=== PATIENT | male | born 1985 | race Two or more races ===

== ENCOUNTER 2024-12-08 12:47 | Inpatient (IN) | payer MEDICAID, SELFPAY ==
[2024-12-08] VITALS (10 sets, daily range): BP systolic 83–127; BP diastolic 51–70; PULSE 47–141; RESP 13–22; TEMP 36.4–36.6; O2SAT 96–98; BMI 36.9; BMI 39.2
--- NOTE | 2024-12-08 13:22 | PD.EDRME ---
Rapid Medical Screening Exam E Arrival date/time: 12/08/24 12:47 39-year-old male with a history of developmentally delay presents to the emergency room with a chief complaint of a low hemoglobin level. Family member at bedside states the level was at 7 and the doctor instructed her to come to the emergency room. Family at bedside also states the patient has had bright red rectal bleeding. I have greeted and performed a focused initial assessment of this patient. A comprehensive ED assessment and evaluation of the patient, analysis of all test results, and completion of the medical decision making process will be conducted by additional ED providers. Chief Complaint: GI Bleed Vital signs: Vital Signs Temperature 97.6 F 12/08/24 13:19 Pulse Rate 68 12/08/24 13:19 Respiratory Rate 18 12/08/24 13:19 Blood Pressure 124/66 12/08/24 13:19 Pulse Oximetry (%) 97 12/08/24 13:19 Oxygen Delivery Method Room Air 12/08/24 13:19 Vital signs reviewed by provider: Yes
[2024-12-08 13:49] LABS: Basophils % (Auto) 1 % (0-2.5); Eosinophils % (Auto) 0 % (0-10); Hematocrit 24.3 % (41.0-53.0); Immature Granulocytes % (Auto) 0 % (0-0); Immature Granulocytes Auto 0.01 Thou/mm3 (0.00-0.00); Lymphocytes # (Auto) 1.6 Thou/mm3 (1.0-4.8); Lymphocytes % (Auto) 33 % (10-50); Mean Corpuscular HGB Conc 29.6 g/dl (31.0-37.0); Mean Corpuscular Hemoglobin 20.3 pg (25.0-35.0); Mean Corpuscular Volume 69 fL (80-100); Monocytes # (Auto) 0.4 Thou/mm3 (0.0-0.8); Monocytes % (Auto) 8 % (0-12); Neutrophils # (Auto) 2.9 Thou/mm3 (1.8-7.7); Neutrophils % (Auto) 58 % (37-80); Nucleated Red Blood Cell # 0.02 Thou/mm3 (0.00-0.00); Nucleated Red Blood Cell % 0 /100 WBC (0); Platelet Count 309 Thou/mm3 (140-440); RDW Standard Deviation 46.8 fL (35.1-43.9); Red Blood Count 3.54 Miln/mm3 (4.50-5.90); White Blood Count 4.9 Thou/mm3 (3.8-10.6)
[2024-12-08 13:53] LABS: Hemoglobin 7.2 g/dL (13.5-16.0)
[2024-12-08 14:04] LABS: Partial Thromboplastin Time 24.6 Seconds (22.0-36.0); Prothrombin Time 11.3 Seconds (9.0-12.2)
[2024-12-08 14:08] LABS: Alanine Aminotransferase 18 U/L (10-49); Albumin, Serum 4.2 gm/dL (3.5-5.0); Albumin/Globulin Ratio 1.3 (1.2-2.2); Alkaline Phosphatase 107 U/L (46-116); Anion Gap 8 (7-16); Aspartate Amino Transferase 26 U/L (0-34); BUN/Creatinine Ratio 19 Ratio (12-20); Bilirubin,Total 0.4 mg/dL (0.3-1.2); Blood Urea Nitrogen 23 mg/dL (9-23); Calcium 8.9 mg/dL (8.3-10.6); Calcium (Corrected) 8.9 mg/dL (8.5-10.1); Chloride 110 mMol/L (98-107); Creatinine (Component) 1.2 mg/dL (0.6-1.3); Estimated Creatinine Clearance 81.9 mL/min (>60); Globulin 3.3 gm/dL (2.3-3.5); Glucose 100 mg/dL (74-106); Osmolality,Calculated 286 (275-295); Potassium 4.4 mMol/L (3.4-5.1); Sodium 142 mMol/L (136-145); Total Protein 7.5 gm/dL (5.7-8.2); eGFR > 60 See Note
[2024-12-08 15:25] LABS: Path Review Blood Smear Sent to Pathologist
--- NOTE | 2024-12-08 19:52 | EKG_ITS ---
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
--- NOTE | 2024-12-08 20:24 | EDNOTE_ITS ---
ED GI Bleed RME/HPI General Chief complaint: GI Bleed Stated complaint: HGB 7.6; PCP SENT FOR TRANSFUSION; POSSIBLE GI BLE Time Seen by Provider: 12/08/24 19:52 Arrival date/time: 12/08/24 12:47 Limitations: no limitations RME / HPI RME / HPI Narrative: 12/08/24 12:47 39-year-old male with a history of developmentally delay presents to the emergency room with a chief complaint of a low hemoglobin level. Family member at bedside states the level was at 7 and the doctor instructed her to come to the emergency room. Family at bedside also states the patient has had bright red rectal bleeding. I have greeted and performed a focused initial assessment of this patient. A comprehensive ED assessment and evaluation of the patient, analysis of all test results, and completion of the medical decision making process will be conducted by additional ED providers. DR. MADISON MAIN ED EVALUATION: 40 year old male with past medical history significant for developmentally delay presents to the Emergency Department accompanied by mother sent from PCP for low hemoglobin of 7.6 and sent for a blood transfusion. Per family, patient has a hemorrhoid and has been bleeding since 05/2024. PCP: [facility] Related Data Home Medications ?Medication ?Instructions ?Recorded ?Confirmed ferrous sulfate 325 mg (65 mg 325 mg PO .joshua;y 5 12/09/24 iron) tablet (FeroSul) Previous Rx's ?Medication ?Instructions ?Recorded levothyroxine 50 mcg capsule 50 mcg PO ACBR 30 days #3 0 caps 12/12/24 psyllium husk 0.4 gram capsule 0.4 g PO QDAY #30 caps 12/12/24 (Metamucil) Allergies Allergy/AdvReac Type Severity Reaction Status Date / Time No Known Allergies Allergy Verified 12/08/24 12:50 Review of Systems Review of Systems ROS Unobtainable: unobtainable due to medical condition Past Medical History Past Medical History CARDIAC: Negative Congestive Heart Failure RESPIRATORY: Negative Chronic Obstructive Pulmonary Disease (COPD) GENITOURINARY: Negative Renal Disease ENDOCRINE: Negative Diabetes Mellitus Type 1 or Diabetes Mellitus Type 2 OTHER HISTORY: Positive Developmental Delay Social History SMOKING STATUS: Never smoker SUBSTANCE USE: does not use ALCOHOL: Never ED Exam General Limitations: Present no limitations General appearance: Present alert (at baseline), in no apparent distress and other (pale) Head Head exam: Present atraumatic, normocephalic and normal inspection Eye Eye exam: Present normal appearance, PERRL and EOMI ENT ENT exam: Present normal exam, normal oropharynx and mucous membranes moist Neck Neck exam: Present normal inspection, full ROM and trachea midline Chest Chest inspection: Present normal inspection and symmetric chest wall rise Respiratory Respiratory exam: Present normal lung sounds bilaterally Cardiovascular Cardiovascular exam: Present regular rate, normal rhythm and normal heart sounds Abdominal Exam Abdominal exam: Present soft and normal bowel sounds Extremities Exam Extremities exam: Present normal inspection and full ROM Back Exam Back exam: Present normal inspection and full ROM Neurological Exam Neurological exam: Present alert (at baseline) and CN II-XII intact Psychiatric Psychiatric exam: Present normal affect and normal mood Skin Skin exam: Present warm, dry, intact, normal color and pallor Course Quality Measures none Orders Category Date Time Status COVID-19 Screening Questionnaire NOW Care 12/08/24 21:[address] Screening NOW Care 12/08/24 21:43 Completed Decision to Admit X1 Care 12/08/24 21:46 Completed EKG (ED ONLY) *Do not use* NOW Care 12/08/24 19:52 Completed IV [Insert IV] STAT Care 12/08/24 19:52 Completed Miscellaneous Nursing Order X1 Care 12/08/24 19:59 Completed NPO NOW Care 12/08/24 21:58 Completed Consult to Gastroenterology Stat Cons 12/08/24 21:[address] abdomen pelvis w con Stat Exams 12/08/24 21:43 Completed EKG (ED Only) Stat Exams 12/08/24 19:52 Draft B-Type Natriuretic Peptide Stat Lab 12/08/24 20:29 Completed CBC Stat Lab 12/08/24 13:37 Completed CMP [Comprehensive Metabolic Panel] Stat Lab 12/08/24 13:37 Completed Iron Panel AM DRAW Lab 12/09/24 04:15 Completed PT [Prothrombin Time with INR] Stat Lab 12/08/24 13:37 Completed PTT [Partial Thromboplastin Time] Stat Lab 12/08/24 13:37 Completed Path Review Blood Smear Stat Lab 12/08/24 13:37 Completed Red Blood Cells Stat Lab 12/08/24 13:37 Completed Troponin I Stat Lab 12/08/24 20:29 Completed Type and Screen Stat Lab 12/08/24 13:37 Completed Vital Signs Vital signs: Vital Signs Temperature 97.6 F 12/08/24 13:19 Pulse Rate 68 12/08/24 13:19 Respiratory Rate 18 12/08/24 13:19 Blood Pressure 124/66 12/08/24 13:19 Pulse Oximetry (%) 97 12/08/24 13:19 Oxygen Delivery Method Room Air 12/08/24 13:19 GI Bleed MDM Narrative MDM Narrative:: I, Estephanie Bennett am scribing for and in the presence of Dr. Madison. Patient data External records reviewed:: PCP records Clinical information provided by:: family (mother) Social determinants that could affect healthcare access:: none Patient has the following chronic illnesses:: developmentally delay How is presenting disease/condition affected by chronic disease/condition?: uneffected by Evaluation data The following diagnostics were reviewed and interpreted by me:: lab results and EKG tracing(s) Lab and/or radiology exams considered but not ordered:: none Interpretation Summary: EKG: Dated 12/08/2024 at 2007 hours. Interpreted by me: sinus rhythm, rate 49, normal interval, normal axis, no STEMI RBC 3.54 Hgb 7.2 Hct 24.3 Medications / Prescriptions Medications or Prescriptions considered but not ordered:: none Medication administrations:: Medication Administration History Discontinued Medications Acetaminophen (Acetaminophen 325 Mg Tablet) 650 mg PO Q6H PRN PRN Reason: PAIN SCALE 1-3 (mild Stop: 01/07/25 21:59 Acetaminophen (Acetaminophen 325 Mg Tablet) 650 mg PO Q6H PRN PRN Reason: Fever >100.4 Stop: 01/07/25 21:59 Acetaminophen (Acetaminophen 325 Mg Tablet) 1,000 mg PO Q6H PRN PRN Reason: PAIN SCALE 1-3 (mild Stop: 01/07/25 21:59 Last Admin: 12/11/24 19:13 Dose: 1,000 mg Documented By: TD Acetaminophen (Acetaminophen 500 Mg Tablet) 1,000 mg PO Q6H PRN PRN Reason: PAIN SCALE 1-3 (mild Stop: 01/07/25 21:59 Diphenhydramine HCl (Diphenhydramine Inj 50 Mg/Ml Vial) 25 mg IV PRNMRX1 PRN PRN Reason: MODERATE SEDATION Diphenhydramine HCl (Diphenhydramine Inj 50 Mg/Ml Vial) Confirm Administered Dose 50 mg .ROUTE .STK-MED ONE Stop: 12/09/24 21:09 Diphenhydramine HCl (Diphenhydramine Inj 50 Mg/Ml Vial) Confirm Administered Dose 50 mg .ROUTE .STK-MED ONE Stop: 12/11/24 12:26 Diphenhydramine HCl (Diphenhydramine Inj 50 Mg/Ml Vial) 25 mg IV PRNMRX1 PRN PRN Reason: MODERATE SEDATION Stop: 12/11/24 14:29 Fentanyl Citrate (Fentanyl Cit Inj 50 Mcg/Ml Amp 2ml) 50 mcg IV Q2M PRN PRN Reason: MODERATE SEDATION Fentanyl Citrate (Fentanyl Cit Inj 50 Mcg/Ml Amp 2ml) Confirm Administered Dose 100 mcg .ROUTE .STK-MED ONE Stop: 12/09/24 21:09 Fentanyl Citrate (Fentanyl Cit Inj 50 Mcg/Ml Amp 2ml) Confirm Administered Dose 100 mcg .ROUTE .STK-MED ONE Stop: 12/11/24 12:25 Fentanyl Citrate (Fentanyl Cit Inj 50 Mcg/Ml Amp 2ml) 50 mcg IV Q2M PRN PRN Reason: MODERATE SEDATION Stop: 12/11/24 14:29 Sodium Chloride (Ns) 500 mls @ 20 mls/hr IV .Q24H ONE Stop: 12/12/24 13:11 Last Admin: 12/11/24 13:07 Dose: 20 mls/hr Documented By: SAEED Iron Sucrose (Iron Sucrose Cplx Inj 20 Mg/Ml Vial 5 Ml) 200 mg IVP DAILY [facility] Stop: 12/13/24 08:59 Last Admin: 12/12/24 08:19 Dose: 200 mg Documented By: Admin: 12/11/24 08:49 Dose: 200 mg Documented By: Admin: 12/10/24 09:06 Dose: 200 mg Documented By: Admin: 12/09/24 09:56 Dose: 200 mg Documented By: CINDY Levothyroxine Sodium (Levothyroxine Sodium 25 Mcg Tablet) 50 mcg PO ACBR [facility] Stop: 01/09/25 05:59 Last Admin: 12/12/24 05:24 Dose: 50 mcg Documented By: Admin: 12/11/24 05:13 Dose: 50 mcg Documented By: Admin: 12/10/24 05:11 Dose: 50 mcg Documented By: Midazolam HCl (Midazolam Inj 1 Mg/Ml Vial 2 Ml) 2 mg IV Q2M PRN PRN Reason: Moderate Sedation Midazolam HCl (Midazolam Inj 1 Mg/Ml Vial 2 Ml) Confirm Administered Dose 4 mg .ROUTE .STK-MED ONE Stop: 12/09/24 21:09 Midazolam HCl (Midazolam Inj 1 Mg/Ml Vial 2 Ml) Confirm Administered Dose 6 mg .ROUTE .STK-MED ONE Stop: 12/11/24 12:26 Midazolam HCl (Midazolam Inj 1 Mg/Ml Vial 2 Ml) 2 mg IV Q2M PRN PRN Reason: Moderate Sedation Stop: 12/11/24 14:29 Ondansetron HCl (Ondansetron Inj 2 Mg/Ml Inj 2 Ml) 4 mg IV Q6H PRN; Protocol PRN Reason: NAUSEA OR VOMITING Stop: 01/07/25 21:59 Pantoprazole Sodium (Pantoprazole Inj 40 Mg Vial) 40 mg IVP QDAY [facility] Stop: 01/08/25 08:59 Pantoprazole Sodium (Pantoprazole Inj 40 Mg Vial) 40 mg IVP BID CARLEE Stop: 01/08/25 08:59 Last Admin: 12/12/24 08:20 Dose: 40 mg Documented By: Admin: 12/11/24 20:29 Dose: 40 mg Documented By: Admin: 12/11/24 08:50 Dose: 40 mg Documented By: Admin: 12/10/24 20:16 Dose: 40 mg Documented By: Admin: 12/10/24 09:06 Dose: 40 mg Documented By: Admin: 12/09/24 20:34 Dose: 40 mg Documented By: Admin: 12/09/24 08:03 Dose: 40 mg Documented By: CINDY Polyethylene Glycol/Electrolytes (Na Grover/Nahco3/Jon/Peg (Golytely) 4,000 Ml Btl) 4,000 ml PO X1 ONE Stop: 12/09/24 21:28 Last Admin: 12/09/24 22:32 Dose: 4,000 ml Documented By: Comments: Pt returned to floor at 2209 Polyethylene Glycol/Electrolytes (Na Grover/Nahco3/Jon/Peg (Golytely) 4,000 Ml Btl) 4,000 ml PO X1 ONE Stop: 12/10/24 16:16 Last Admin: 12/10/24 16:37 Dose: 4,000 ml Documented By: ANNIE Comments: rubia ham see above if any Consultations Consultation(s) initiated? (list below): Yes Consultation #1 (Physician, Specialty, Details): Discussed case with from Hospitalist service regarding admission. Discussed patients ED course, exam findings, labs, and radiology results. The Hospitalist [agrees] to accept the patient for admission. Diagnosis GI bleed differential diagnosis: hemorrhoids, Upper gastrointestinal hemorrhage, Lower gastrointestinal hemorrhage and anal fissure Most likely diagnosis given after review of the tests above:: see below Admission Indicated Admission indicated?: indicated Admission Request Was there a request for admission?: Yes Admission Attestation Admission request attestation: Discussed case with [] from Hospitalist service regarding admission. Discussed patients ED course, exam findings, labs, and radiology results. The Hospitalist [agrees,declines] to accept the patient for admission. Disposition Plan Disposition Plan: Admit Discharge Plan Plan Patient Disposition: Admit Acute Care w/in Hospital Patient condition on transfer: Stable Problem List Clinical Impression: Acute GI bleeding Patient/Caregiver Discharge Instructions Discharge Activity: resume usual activities Other Activity Instructions:: Please take your home medications as prescribed. Please take your new medications: Levothyroxine 50mcg for a month daily, Ferrous Sulfate 325mg once daily, and Metamucil daily Please incorporate a high fiber diet. Follow up with your PCP or automatic steel tie adjuster within 1-2 weeks, and repeat your TSH and fT4 labs in 6 weeks If you do not have a PCP, please feel free to make an appointment at the [facility], at [phone]
[2024-12-08 20:58] LABS: Troponin I < 0.020 ng/mL (0.0-0.045)
[2024-12-08 20:59] LABS: B-Type Natriuretic Peptide 38 pg/mL (0-100)
--- NOTE | 2024-12-08 21:43 | XR_ITS ---
Examination: CT abdomen with intravenous contrast CT pelvis with intravenous contrast 2-D coronal reconstructions 2-D sagittal reconstructions Date and time of exam:December 08, 2024 1110 hrs. Indications: Anemia, gastrointestinal bleeding today. CTDI: vol (mGy) 10.6 DLP: (mGycm) 667 Technique: Multiple axial sections of the abdomen and pelvis have been obtained. 64 slice high-resolution scanner used. 3 mm axial sections have been obtained, post intravenous injection 60 cc [id number] 2-D sagittal, coronal reconstructions obtained. Low dose protocols were performed. One or more of the following dose reduction techniques were used; automated exposure control, adjustment of the mA and/or KV according to patient size, use of iterative reconstruction technique. Findings: No focal liver or splenic lesions No gallstones No pancreatic or adrenal mass No renal or ureteral calculi, no hydronephrosis Aorta normal size Normal appendix No bowel obstruction Prostate is not enlarged Minimal thickening of the urinary bladder wall 3 mm Grade 1 spondylolisthesis L5 on S1 Advanced degenerative disc disease L5-S1 Impression: Mild cystitis pattern
--- NOTE | 2024-12-08 22:01 | ESHP_ITS ---
Documentation for date of: 12/08/24 [facility] History of Present Illness History of present illness: This is a 39-year-old male with Hx of Down syndrome, presenting with acute on chronic bright red blood per rectum. He has intellectual delay secondary to Down syndrome, communicate. However most of the history was obtained from sister at bedside. He's had recurrent bright blood in his stool since July 2024. He also has bright red when wiping which is continuous. Reports mild rectal pain with defecation that is also chronic. [facility] and was recently found to be anemic, although level unknown. Recently, he was started on iron supplements for iron deficiency anemia. On last PCP visit, 2 days ago, again, he was found to have low hemoglobin and had reported large amount of bright red blood in the toilet, for which she was referred for ED admission today. He reports dizziness, lightheadedness when getting up from a seated position which is also chronic. He was recently diagnosed with bradycardia, asymptomatic. No interventions were done since. Denies fever, chills, chest pain, shortness of breath, palpitations, abdominal pain, nausea, vomiting, diarrhea, constipation, hemoptysis or hematemesis or hematuria, dysuria, urinary frequency or urgency. No reported abnormal weight changes or night sweats. ED COURSE: Vitals within normal limits on admission, HR in 50s during encounter. CBC showed Hgb 7.2, hematocrit 24.3, MCV 69, remainder CMP within normal limits. Normal coag studies. No significant abnormality on chemistry panel, including normal troponin and BNP. EKG showed sinus bradycardia. ED initiated 2 units RBC transfusions. He was admitted for acute blood loss anemia. PMHx: Down syndrome PSHx: None MEDS: Iron supplements ALLERGIES: NKA FHx: No evidence of SH: Lives with family at home, denies alcohol/drug/tobacco use. Exam Vital Signs Temp Pulse Resp BP Pulse Ox O2 Del Method 97.8 F 66 18 114/64 96 Room Air 12/08/24 19:52 12/08/24 19:52 12/08/24 19:52 12/08/24 19:52 12/08/24 19:52 12/08/24 19:52 Narrative Exam GENERAL * Obese, otherwise normal appearing male. No apparent distress HEENT * NCAT.?SHINE. Oral mucosa is moist. Patent Nares NECK * Supple, nontender, no thyromegaly, no meningismus, no JVD, no step offs CHEST * Bradycardic, regular rhythm, no m/g/r * CTAB, no w/r/r. Symmetrical chest rise. No intercostal subcostal retraction * Atraumatic, nontender, no crepitus, symmetrical expansion. ABDOMEN * Soft, flat, nontender. No guarding/rebound tenderness/masses. * Bowel sounds presents EXTREMITIES * No edema/cyanosis.? SKIN * Warm and dry, no jaundice/rashes. NEUROMUSCULAR * No lumbar or midline, no CVA, no paraspinal muscle spasm or tenderness. * Moves all 4 extremities well, with full ROM and good CSM. * CARMICHAEL x4, CN II-XII grossly intact. * No focal neurologic deficits. PSYCHIATRY * Normal mood and affect, cooperative, no SI or HI or hallucinations. RECTAL EXAM * No obvious hemorrhoids or active bleeding. Results: Labs 12/08/24 13:37 12/08/24 13:37 Labs: Short CBC 12/08/24 Range/Units 13:37 WBC 4.9 (3.8-10.6) Thou/mm3 Hgb 7.2 L (13.5-16.0) g/dL Hct 24.3 L (41.0-53.0) % Plt Count 309 (140-440) Thou/mm3 BMP 12/08/24 13:37 Sodium 142 Potassium 4.4 Chloride 110 H Carbon Dioxide 24.0 BUN 23 Creatinine 1.2 Glucose 100 Calcium 8.9 Cardiac Enzymes 12/08/24 Range/Units 20:29 Troponin I < 0.020 (0.0-0.045) ng/mL Liver Function 12/08/24 Range/Units 13:37 Total Bilirubin 0.4 (0.3-1.2) mg/dL AST 26 (0-34) U/L ALT 18 (10-49) U/L Alkaline Phosphatase 107 (46-116) U/L Albumin 4.2 (3.5-5.0) gm/dL Quality Measures Quality Measures none Medications Home Medications and Allergies Allergies Allergy/AdvReac Type Severity Reaction Status Date / Time No Known Allergies Allergy Verified 12/08/24 12:50 Assessment & Plan Plan In summary: 39-year-old male with past medical history of Down syndrome, presenting with 6 months of blood stool per rectum. Admitted for blood loss anemia in settings of lower GI bleed. Prescient recommendations from GI team. Blood loss anemia Lower GI bleed Admission Hgb 7.2, MCV 69. Likely internal hemorrhoid versus diverticular bleed. Reports recurrent bright blood per rectum along with rectal pain with defecation, since July 2024. Often has large amount of stool, often staining the toilet. [facility] has been trending hemoglobin, recently started iron supplements which she is taking. On most recent PCP visit, found to have low hemoglobin, reported large amount of bright red blood in toilet, after which he was referred to ED. No previous colonoscopy or endoscopy done. No active bleeding or hemorrhoid noted on rectal exam. FOBT negative. ED initiated 2 units PRBC transfusion. ? Follow-up transfusion H&H ? Transfuse if Hgb <7 ? Continue PROTONIX ? Pending iron panel ? Pending CT abdomen with contrast ? Pending GI recommendations Sinus bradycardia Normotensive, HR in 60s on admission, but noted in 50s on telemetry during encounter. EKG shows sinus bradycardia with HR 49. Per sister at bedside, he was diagnosed with sinus bradycardia several months ago. No intervention has been done since. He is asymptomatic other than above mentioned dizziness and shaking which most likely related to anemia. ? Continue to monitor ? Pending thyroid function ? Consider outpatient cardiology follow-up Down syndrome Mild intellectual disability. Able to communicate, however please refer to family member for questions. Health maintenance Diet: NPO GI prophylaxis: PROTONIX DVT prophylaxis: SCD Antibiotics: Not indicated CODE STATUS: Full code Disposition: Admitted for acute blood loss anemia. Patient case was discussed with attending, Inderjit Vela MD. Ewa Aguilar DO PGYI Attending Provider Attestation/Addendum I attest that I was physically present for the evaluation, physical examination, lab and imaging review of the patient with the residents. I discussed the case with the residents and agree with the findings and plans of care as documented above. Patient is a 39 years old male with past medical history of Down syndrome who presented to the ED with complaint of bright red blood per rectum. As per patient's family at bedside, patient has been having recurrent bright red blood in the stool since July 2024. She states that she has noticed blood in the commode as well as bright red blood while wiping. Patient had a blood work done about 15 days back, he was told that he is anemic and was started on iron supplements. He had another visit 2 days back where he was found to have low hemoglobin and was asked to visit the ED today. Patient denies any abdominal pain, nausea, vomiting, diarrhea, constipation, hematemesis. He does complain of dizziness and lightheadedness. In the ED, he was noted to have a heart rate of 50s, sinus bradycardia on EKG. Patient's sister stated that his PCP are aware of his heart rate. Currently he does not complain of palpitations, chest pain. Lab results show hemoglobin of 7.2, MCV 69. Rest of the labs are within normal limits. Patient was initiated transfusion with 2 units of PRBC in the ED. We will admit the patient for acute blood loss anemia, GI bleeding. We will start him on IV Protonix, we will follow-up with H&H after transfusion, we will transfuse more if hemoglobin continues to be low. We will obtain CT abdomen. We will obtain GI consult. We will closely monitor his heart rate, he is currently asymptomatic and blood pressure has been stable, patient may need further cardiology workup. uSng Vela MD
--- NOTE | 2024-12-08 23:06 | PD.IMCONS ---
HPI Data of Consult Requesting Physician: Sung Vela MD Primary Care Provider: Carlos Dean MD Consult Narrative Reason for consult: Hematochezia History of present illness: 39 years old male evaluated in his room 355 Patient's father and brother were there I have been consulted for hematochezia with a drop in hemoglobin to 7.2 and 24.3 he has been given 2 units of PRBCs and hemoglobin hematocrit is now 9.8 and 32.3 Not much different from the patient as she is Down syndrome hypothyroidism and sinus bradycardia cc:: cc: Sung Vela MD Review of Systems Review of Systems Systems Reviewed: All systems reviewed, normal except as documented Past Medical History Surgical History OTHER SURGICAL HX: As in the history of present illness Meds Home Medications and Allergies Home Medications ?Medication ?Instructions ?Recorded ?Confirmed ?Type ferrous sulfate 325 mg (65 mg 325 mg PO .joshua;y 12/09/24 12/09/24 History iron) tablet (FeroSul) Allergies Allergy/AdvReac Type Severity Reaction Status Date / Time No Known Allergies Allergy Verified 12/08/24 12:50 Exam Vital Signs Temp Pulse Resp BP Pulse Ox O2 Del Method 97.8 F 51 L 22 H 122/54 L 96 Room Air 12/08/24 19:52 12/08/24 22:13 12/08/24 22:13 12/08/24 22:13 12/08/24 19:52 12/08/24 19:52 Routine Respiratory Exam Comments: Normal to auscultation Routine Abdominal Exam Comments: Soft nontender Results Labs 12/09/24 12:08 12/09/24 04:15 Labs: Short CBC 12/08/24 Range/Units 13:37 WBC 4.9 (3.8-10.6) Thou/mm3 Hgb 7.2 L (13.5-16.0) g/dL Hct 24.3 L (41.0-53.0) % Plt Count 309 (140-440) Thou/mm3 BMP 12/08/24 13:37 Sodium 142 Potassium 4.4 Chloride 110 H Carbon Dioxide 24.0 BUN 23 Creatinine 1.2 Glucose 100 Calcium 8.9 Cardiac Enzymes 12/08/24 Range/Units 20:29 Troponin I < 0.020 (0.0-0.045) ng/mL Liver Function 12/08/24 Range/Units 13:37 Total Bilirubin 0.4 (0.3-1.2) mg/dL AST 26 (0-34) U/L ALT 18 (10-49) U/L Alkaline Phosphatase 107 (46-116) U/L Albumin 4.2 (3.5-5.0) gm/dL Assessment and Plan Additional Assessment & Plan Additional Plan: # Hematochezia # Acute posthemorrhagic anemia requiring blood transfusion Plan Initial test discharge she is fiberoptic upper endoscopy with possible therapeutic intervention possible biopsy under intravenous moderate sedation If negative will have a GoLytely prep and do a colonoscopy prior to discharge Other medical problems include # Down syndrome # Sinus bradycardia # Hypothyroidism thank you very much for the opportunity to participate in care of this patient
[2024-12-09] VITALS (32 sets, daily range): BP systolic 87–149; BP diastolic 48–87; PULSE 43–79; RESP 7–27; TEMP 36.1–37.1; O2SAT 92–100; BMI 40.1
[2024-12-09 05:46] LABS: Basophils % (Auto) 1 % (0-2.5); Eosinophils % (Auto) 0 % (0-10); Hematocrit 24.9 % (41.0-53.0); Immature Granulocytes % (Auto) 0 % (0-0); Immature Granulocytes Auto 0.01 Thou/mm3 (0.00-0.00); Lymphocytes # (Auto) 2.2 Thou/mm3 (1.0-4.8); Lymphocytes % (Auto) 48 % (10-50); Mean Corpuscular HGB Conc 29.3 g/dl (31.0-37.0); Mean Corpuscular Hemoglobin 20.1 pg (25.0-35.0); Mean Corpuscular Volume 69 fL (80-100); Monocytes # (Auto) 0.4 Thou/mm3 (0.0-0.8); Monocytes % (Auto) 9 % (0-12); Neutrophils # (Auto) 1.9 Thou/mm3 (1.8-7.7); Neutrophils % (Auto) 42 % (37-80); Nucleated Red Blood Cell % 0 /100 WBC (0); Platelet Count 298 Thou/mm3 (140-440); Red Blood Count 3.63 Miln/mm3 (4.50-5.90); White Blood Count 4.5 Thou/mm3 (3.8-10.6)
[2024-12-09 05:52] LABS: Hemoglobin 7.3 g/dL (13.5-16.0)
[2024-12-09 06:10] LABS: Alanine Aminotransferase 17 U/L (10-49); Albumin, Serum 4.1 gm/dL (3.5-5.0); Albumin/Globulin Ratio 1.3 (1.2-2.2); Alkaline Phosphatase 89 U/L (46-116); Anion Gap 8 (7-16); Aspartate Amino Transferase 24 U/L (0-34); BUN/Creatinine Ratio 19 Ratio (12-20); Bilirubin,Total 0.5 mg/dL (0.3-1.2); Blood Urea Nitrogen 19 mg/dL (9-23); Calcium 8.8 mg/dL (8.3-10.6); Calcium (Corrected) 8.8 mg/dL (8.5-10.1); Carbon Dioxide 26.6 mMol/L (20.0-31.0); Chloride 106 mMol/L (98-107); Estimated Creatinine Clearance 91.6 mL/min (>60); Free T4 (Free Thyroxine) 1.02 ng/dL (0.89-1.76); Globulin 3.2 gm/dL (2.3-3.5); Glucose 90 mg/dL (74-106); Magnesium 2.3 mg/dL (1.6-2.6); Osmolality,Calculated 283 (275-295); Phosphorous 3.7 mg/dL (2.4-5.1); Potassium 3.9 mMol/L (3.4-5.1); Sodium 141 mMol/L (136-145); Thyroid Stimulating Hormone 6.93 uIU/mL (0.55-4.78); Total Protein 7.3 gm/dL (5.7-8.2); eGFR > 60 See Note
[2024-12-09 06:11] LABS: Total Iron Binding Capacity 401 mcg/dL (250-425)
[2024-12-09 06:21] LABS: Iron 18 mcg/dL (65-175); Percent Iron Saturation 4 % (20-55); Unsaturated Iron Binding 383 (225-295)
[2024-12-09] MEDS: PANTOPRAZOLE INJ 40 MG VIAL IVP ×2 (08:03→20:34)
[2024-12-09 08:49] LABS: Ferritin 3 ng/mL (10.5-307.3)
--- NOTE | 2024-12-09 09:07 | CHAP ---
Patient expressed gratitude for visit and prayer.
[2024-12-09 09:33] LABS: Collection Type, Urine Clean Catch
[2024-12-09 09:40] LABS: Bilirubin,Urine Negative (Negative); Blood,Urine Negative (Negative); Clarity,Urine Turbid (Clear/Hazy); Color,Urine Lt-Yellow (Lt Yel-Yel); Glucose, Urine Negative (Negative); Ketones,Urine Negative (Negative); Leukocyte Esterase,Urine Negative (Negative); Nitrite,Urine Negative (Negative); PH,Urine 5.5 (5.0-7.0); Protein,Urine Negative (Neg - Trace); RBC,Urine < 1 /hpf (0-3); Specific Gravity,Urine 1.039 (1.001-1.035); Squamous Epithelial Cell,Urine < 1 /hpf (0-5); Urobilinogen,Urine Negative mg/dL (0.0-1.0); WBC,Urine < 1 /hpf (0-5)
[2024-12-09] MEDS: IRON SUCROSE CPLX INJ 20 MG/ML VIAL 5 ML 200 MG IVP (09:56)
--- NOTE | 2024-12-09 09:56 | PD.RESPRO ---
Documentation for date of: 12/09/24 Subjective Subjective Interval history: Patient was seen and examined at bedside. His sister is at the bedside and helping to provide history. Patient does not have any complaints at this moment, denies any abdominal pain. He was transfused 1 unit of PRBC and she started second unit. Morning labs showed hemoglobin 7.3. GI is on board, patient is NPO in anticipation of endoscopy. Patient TSH was 6.93 and free T4 1.02, patient has significant bradycardia at low 40s-50s therefore we initiated levothyroxine 50 mcg daily. Continue current management and monitor patient, will follow-up on H&H. Exam Vital Signs Temp Pulse Resp BP Pulse Ox O2 Del Method 97.9 F 52 L 16 105/55 L 99 Room Air 12/09/24 08:40 12/09/24 08:40 12/09/24 08:40 12/09/24 08:40 12/09/24 08:40 12/09/24 07:29 Narrative Exam Gen: Well-nourished male. HEENT: NCAT, PERRLA, EOMI, MMM, anicteric conjunctivae, facial features consistent with Down syndrome. CVS: normal S1 and S2. Regular bradycardia. No M/R/G. Resp: CTA B/L. No rhonchi, rales, crackles or wheezing. Abd: soft, non-tender, non-distended. BS+ in all 4 quadrants. MSK: Good ROM in BUE & BLE. No edema or rash. Neuro: CN II-XII grossly intact. Strength 5/5 in BUE & BLE. Limited exam due to medical condition. Objective Labs 12/09/24 12:08 12/09/24 04:15 Labs: Laboratory Results - last 24 hr 12/08/24 12/08/24 12/09/24 13:37 20:29 04:15 WBC 4.9 4.5 RBC 3.54 L 3.63 L Hgb 7.2 L 7.3 L Hct 24.3 L 24.9 L MCV 69 L 69 L MCH 20.3 L 20.1 L MCHC 29.6 L 29.3 L RDW Std Deviation 46.8 H 47.0 H Plt Count 309 298 Neut % (Auto) 58 42 Lymph % (Auto) 33 48 [place] % (Auto) 8 9 Eos % (Auto) 0 0 Baso % (Auto) 1 1 Neut # (Auto) 2.9 1.9 Lymph # (Auto) 1.6 2.2 [place] # (Auto) 0.4 0.4 Eos # (Auto) 0.0 0.0 Baso # (Auto) 0.0 0.0 Immature Gran # (Auto) 0.01 H 0.01 H Absolute Nucleated RBC 0.02 H 0.00 Immature Gran % 0 0 Nucleated RBC % 0 0 Smear Path Review Sent to Pathologist PT 11.3 INR 1.0 APTT 24.6 Sodium 142 141 Potassium 4.4 3.9 D Chloride 110 H 106 Carbon Dioxide 24.0 26.6 Anion Gap 8 8 BUN 23 19 Creatinine 1.2 1.0 Estim Creat Clear Calc 81.9 91.6 eGFR > 60 > 60 BUN/Creatinine Ratio 19 19 Glucose 100 90 Calculated Osmolality 286 283 Calcium 8.9 8.8 Corrected Calcium 8.9 8.8 Phosphorus 3.7 Magnesium 2.3 Iron 18 L TIBC 401 Iron Saturation 4 L Unsat Iron Binding 383 H Ferritin 3 L Total Bilirubin 0.4 0.5 AST 26 24 ALT 18 17 Alkaline Phosphatase 107 89 Troponin I < 0.020 B-Natriuretic Peptide 38 Total Protein 7.5 7.3 Albumin 4.2 4.1 Globulin 3.3 3.2 Albumin/Globulin Ratio 1.3 1.3 TSH 6.93 H Free T4 1.02 Blood Type O Positive Cancelled Antibody Screen NEGATIVE Cancelled Crossmatch See Detail See Detail Blood Bank Wristband ID Yes Cancelled Quality Measures Quality Measures VTE prophylaxis Assessment & Plan Assessment Current Active Medications: Generic Name Dose Route Start Last Admin Trade Name Leanderq PRN Reason Stop Dose Admin Acetaminophen 1,000 mg 12/09/24 08:23 Acetaminophen 325 Mg Tablet PO 01/07/25 21:59 Q6H PRN PAIN SCALE 1-3 (mild Iron Sucrose 200 mg 12/09/24 09:00 Iron Sucrose Cplx Inj 20 Mg/Ml Vial 5 Ml IVP 01/08/25 08:59 DAILY CARLEE Ondansetron HCl 4 mg 12/08/24 22:00 Ondansetron Inj 2 Mg/Ml Inj 2 Ml IV 01/07/25 21:59 Q6H PRN NAUSEA OR VOMITING Protocol Pantoprazole Sodium 40 mg 12/09/24 09:00 12/09/24 08:03 Pantoprazole Inj 40 Mg Vial IVP 01/08/25 08:59 40 mg BID CARLEE Administration Plan 39-year-old male with past medical history of Down syndrome, presenting with 6 months of blood stool per rectum. Admitted for blood loss anemia in settings of lower GI bleed. #Blood loss anemia. #Lower GI bleed. Admission Hgb 7.2, MCV 69. Likely internal hemorrhoid versus diverticular bleed. Reports recurrent bright blood per rectum along with rectal pain with defecation, since July 2024. Often has large amount of stool, often staining the toilet. [facility] has been trending hemoglobin, recently started iron supplements which she is taking. On most recent PCP visit, found to have low hemoglobin, reported large amount of bright red blood in toilet, after which he was referred to ED. No previous colonoscopy or endoscopy done. No active bleeding or hemorrhoid noted on rectal exam. FOBT negative. ED initiated 2 units PRBC transfusion. ? Follow-up transfusion H&H ? Transfuse if Hgb <7 ? Continue PROTONIX ? Pending iron panel ? CT abdomen with contrast showed cystitis pattern, UA ordered. ? Pending GI recommendations. - patient is NPO. #Hypothyroidism. #Sinus bradycardia. Normotensive, HR in 60s on admission, but noted in 50s on telemetry during encounter. EKG shows sinus bradycardia with HR 49. Per sister at bedside, he was diagnosed with sinus bradycardia several months ago. No intervention has been done since. He is asymptomatic other than above mentioned dizziness and shaking which most likely related to anemia. Labs showed TSH 6.93, free T4 1.02. ? Continue to monitor. ? Consider outpatient cardiology follow-up. - started on levothyroxine 50 mcg daily. #Down syndrome. Mild intellectual disability. Able to communicate, however please refer to family member for questions. Health maintenance: Diet: NPO. GI prophylaxis: PROTONIX. DVT prophylaxis: SCD. Antibiotics: Not indicated. CODE STATUS: Full code. Disposition: Admitted for acute blood loss anemia. Plan of care discussed with attending Dr. Tejada. Alverto Ramirez MD, PGY 2. Disclaimer: This note was dictated by speech recognition. Minor errors in can sterilizer may be present due to voice recognition software. Attending Provider Attestation/Addendum I have discussed and was present for the essential components of the history, physical examination, diagnosis, and treatment plan with the resident. I agree with the patient's care as documented by the resident and amended herein by me. Checo Tejada DO. Patient seen and evaluated this AM. Patient receiving his second unit of blood this morning, EGD scheduled for later on tonight. Urinalysis ordered and is pending. Will continue Protonix 40 mg IV twice daily for GI bleed, colonoscopy likely if nothing found on EGD. Echo is also pending considering patient's asymptomatic bradycardia. Will continue to monitor closely, appreciate specialist recommendations. Although this document has been carefully reviewed, there may still be some phonetic and other typographical errors. These errors are purely grammatical due to imperfections in the software program and should not be construed in any way to compromise the substance of the patient's medical care during this visit.
--- NOTE | 2024-12-09 11:08 | PC.SS ---
Patient is alert/oriented. Sister is at bedside and was able to provide a brief history. 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 Patient's sister confirmed demographics. Patient resides with his family. Patient's sister, Mery, states her father gave her the right to make all healthcare decisions with him. She is the point of contact. Patient was admitted for blood loss anemia. Patient baseline is he needs assistance with all ADL's. Patient does not possess any DME. Patient is devel. delayed and has dx: Cerebral Palsy. Patient is connected to [facility]. Sister does not recall the counselor name. Family is already in pending process for IHSS. PCP: MELLISSA and last appt. was 2 weeks ago. D/c plan is to return home. Family to provide transport.
[2024-12-09 12:40] LABS: Hematocrit 32.3 % (41.0-53.0); Hemoglobin 9.8 g/dL (13.5-16.0)
--- NOTE | 2024-12-09 14:57 | ECHO_ITS ---
Transthoracic Echo Report Ht (in): 59 Wt (lb): 200 Exam Location: Echo Lab Status: Inpatient Docket Specialist: GAIL Cassidy^^^^ Indications: Procedure Performed: BP: 112 / 69 HR: 48 Technical Quality: Very technically difficult study MEASUREMENTS (Male / Female) Normal Values 2D ECHO LV Diastolic Diameter PLAX 4.6 cm 4.2 - 5.9 / 3.9 - 5.3 cm LV Systolic Diameter PLAX 3.1 cm IVS Diastolic Thickness 0.9 cm 0.6 - 1.0 / 0.6 - 0.9 cm LVPW Diastolic Thickness 0.9 cm 0.6 - 1.0 / 0.6 - 0.9 cm LV Relative Wall Thickness 0.4 LVOT Diameter 1.8 cm Aortic Root Diameter 3.1 cm LA Systolic Diameter LX 2.9 cm 3.0 - 4.0 / 2.7 - 3.8 cm Ascending Aorta Diameter 2.8 cm DOPPLER AV Peak Velocity 162.0 cm/s AV Peak Gradient 10.5 mmHg AV Mean Gradient 7.0 mmHg AV Velocity Time Integral 34.4 cm AI Peak Velocity 176.0 cm/s AI Peak Gradient 12.4 mmHg AI Pressure Half Time 593.0 ms LVOT Peak Velocity 94.6 cm/s LVOT Peak Gradient 3.6 mmHg LVOT Velocity Time Integral 28.6 cm LVOT Cardiac Index 1749.8 cm?/min?m? AV Area Cont Eq vti 2.1 cm? AV Area Cont Eq pk 1.5 cm? MV Area PHT 2.4 cm? Mitral E Point Velocity 119.0 cm/s Mitral A Point Velocity 75.7 cm/s Mitral E to A Ratio 1.6 LV E' Lateral Velocity 14.4 cm/s Mitral E to LV E' Lateral Ratio 8.3 LV E' Septal Velocity 10.7 cm/s Mitral E to LV E' Septal Ratio 11.1 TR Peak Velocity 202.0 cm/s TR Peak Gradient 16.3 mmHg PV Peak Velocity 128.0 cm/s PV Peak Gradient 6.6 mmHg RVOT Peak Velocity 77.6 cm/s FINDINGS Left Ventricle Normal left ventricular size, wall thickness, systolic function with no obvious regional wall motion abnormalities. Normal left ventricular diastolic filling pattern for age. The ejection fraction is visually estimated at 55-60 %. Right Ventricle The right ventricle is normal in size and systolic function. The estimated right ventricular systolic pressure, 18 mmHg. Left Atrium The left atrium is normal by two-dimensional, color flow and Doppler imaging with no structural abnormalities, no thrombus formation present. Right Atrium The right atrium is normal by two-dimensional imaging, color flow and Doppler imaging with no structural abnormalities, no thrombus formation present. Atrial Septum The interatrial septum appears normal with no evidence of a shunt. Aorta The aorta is normal by two-dimensional, color flow and Doppler interrogation. Mitral Valve Trace to mild mitral regurgitation. Aortic Valve Mild thickening of the aortic valve leaflets. Tricuspid Valve There is mild tricuspid valve regurgitation. Pulmonic Valve Trivial pulmonic valve regurgitation. Vessels The pulmonary artery appears normal. The inferior vena cava pulmonary and hepatic veins appear normal. Pericardium The pericardium is normal by two-dimensional imaging. There is no significant pericardial effusion. CONCLUSIONS Indication: Bradycardia Normal LV size and function. LVEF is 55 to 60%. Normal diastolic function. Normal RV size and function. Normal RVSP at less than 25 mmHg. Trace to mild MR, mild TR. Edy Lainezumanrigo (Electronically Signed) Final Date: 09 December 2024 16:20
--- NOTE | 2024-12-09 21:35 | SUR.PHASEI ---
2135: pt received from OR via [employer]. received report from MAY Hayes. pt alert and oriented. no s/s of pain or discomfort. no s/s of resp. distress or discomfort.
--- NOTE | 2024-12-09 21:40 | SUR.PHASEI ---
2140: able to use urinal for urination
--- NOTE | 2024-12-09 21:59 | SUR.PHASEI ---
2159: report given to Lenny
--- NOTE | 2024-12-09 22:05 | SUR.PHASEI ---
2205: pt transferred back to room via gurney. pt alert and oriented . no s/s of pain or discomfort. no s/s of resp. distress or discomfort.
[2024-12-09] MEDS: NA SU/NAHCO3/KC/PEG (Golytely) 4,000 ML BTL 4000 ML PO (22:32)
[2024-12-10] VITALS (9 sets, daily range): BP systolic 110–147; BP diastolic 56–76; PULSE 42–67; RESP 15–20; TEMP 36.1–36.9; O2SAT 92–97
[2024-12-10] MEDS: LEVOTHYROXINE SODIUM 25 MCG TABLET 50 MCG PO (05:11)
[2024-12-10 06:06] LABS: Basophils % (Auto) 1 % (0-2.5); Eosinophils % (Auto) 1 % (0-10); Hematocrit 32.5 % (41.0-53.0); Hemoglobin 9.8 g/dL (13.5-16.0); Immature Granulocytes % (Auto) 0 % (0-0); Immature Granulocytes Auto 0.01 Thou/mm3 (0.00-0.00); Lymphocytes # (Auto) 2.1 Thou/mm3 (1.0-4.8); Lymphocytes % (Auto) 59 % (10-50); Mean Corpuscular HGB Conc 30.2 g/dl (31.0-37.0); Mean Corpuscular Hemoglobin 22.1 pg (25.0-35.0); Mean Corpuscular Volume 73 fL (80-100); Monocytes # (Auto) 0.4 Thou/mm3 (0.0-0.8); Monocytes % (Auto) 11 % (0-12); Neutrophils % (Auto) 28 % (37-80); Nucleated Red Blood Cell # 0.02 Thou/mm3 (0.00-0.00); Nucleated Red Blood Cell % 1 /100 WBC (0); Platelet Count 252 Thou/mm3 (140-440); Red Blood Count 4.43 Miln/mm3 (4.50-5.90); White Blood Count 3.6 Thou/mm3 (3.8-10.6)
[2024-12-10 06:18] LABS: Alanine Aminotransferase 20 U/L (10-49); Albumin, Serum 4.1 gm/dL (3.5-5.0); Albumin/Globulin Ratio 1.3 (1.2-2.2); Alkaline Phosphatase 91 U/L (46-116); Anion Gap 8 (7-16); Aspartate Amino Transferase 29 U/L (0-34); BUN/Creatinine Ratio 13 Ratio (12-20); Bilirubin,Total 0.6 mg/dL (0.3-1.2); Blood Urea Nitrogen 13 mg/dL (9-23); Calcium 8.7 mg/dL (8.3-10.6); Calcium (Corrected) 8.7 mg/dL (8.5-10.1); Carbon Dioxide 28.1 mMol/L (20.0-31.0); Chloride 105 mMol/L (98-107); Estimated Creatinine Clearance 91.6 mL/min (>60); Globulin 3.2 gm/dL (2.3-3.5); Glucose 97 mg/dL (74-106); Magnesium 2.2 mg/dL (1.6-2.6); Osmolality,Calculated 281 (275-295); Sodium 141 mMol/L (136-145); Total Protein 7.3 gm/dL (5.7-8.2); eGFR > 60 See Note
--- NOTE | 2024-12-10 07:04 | ESPR_ITS ---
Documentation for date of: 12/10/24 Subjective Subjective Interval history: Not overnight acute events Patient seen and examined at the bedside, patient's sister at the bedside with him he stated that yesterday had a large bowel movement with hematochezia and this morning was less and only the paper toilet was tinged with blood. Patient underwent EGD yesterday that showed gastritis without evident source of bleeding for which gastroenterology recommended colonoscopy. GoLytely was started otherwise patient is refusing to drink it. Exam Vital Signs Temp Pulse Resp BP Pulse Ox O2 Del Method O2 Flow Rate 98.5 F 51 L 20 112/62 95 Room Air 2 12/10/24 04:00 12/10/24 04:00 12/10/24 04:00 12/10/24 04:00 12/10/24 04:00 12/10/24 04:00 12/09/24 21:40 Narrative Exam General: No acute distress, laying comfortably in bed HEENT: NC/AT, PERRL, EOMI, Good conjugate gaze, moist mucous membranes, oropharynx clear. Neck: Supple, No masses, No adenopathy, carotid pulse 2+ bilaterally without bruits, No JVD, normal range of motion. Chest: Symmetrical, atraumatic, and with equal expansion , Nontender on palpation no deformity and no crepitus. CVS: S1 and S2 present, Regular rate and rhythm, No murmurs, rubs or gallops perceived during auscultation. Lungs: Normal respiratory effort, CTAB, no wheezing, rhonchi or rales perceived during auscultation, No intercostal or subcostal retraction. Abdomen : Soft, no tenderness to palpation, no guarding ,no rebound, +BS Extremities: No edema, warm well perfused, normal tone and ROM, strength and sensation intact, cap refill less than 2, +2 dp equal bilaterally, able to move all 4 extremities spontaneously. Skin: Intact, no rashes, no lesions, no erythema or jaundice noted Neuro: Difficult to assess the patient mentation baseline Psych: Difficult to assess due to patient mentation baseline Objective Labs 12/10/24 05:15 12/10/24 05:15 Labs: Laboratory Results - last 24 hr 12/08/24 12/09/24 12/09/24 13:37 04:15 09:25 WBC RBC Hgb Hct MCV MCH MCHC RDW Std Deviation Plt Count Neut % (Auto) Lymph % (Auto) [place] % (Auto) Eos % (Auto) Baso % (Auto) Neut # (Auto) Lymph # (Auto) [place] # (Auto) Eos # (Auto) Baso # (Auto) Immature Gran # (Auto) Absolute Nucleated RBC Immature Gran % Nucleated RBC % Sodium Potassium Chloride Carbon Dioxide Anion Gap BUN Creatinine Estim Creat Clear Calc eGFR BUN/Creatinine Ratio Glucose Calculated Osmolality Calcium Corrected Calcium Phosphorus Magnesium Ferritin 3 L Total Bilirubin AST ALT Alkaline Phosphatase Total Protein Albumin Globulin Albumin/Globulin Ratio Ur Collection Type Clean Catch Urine Color Lt-Yellow Urine Clarity Turbid A Urine pH 5.5 Ur Specific [place] 1.039 H Urine Protein Negative Urine Glucose (UA) Negative Urine Ketones Negative Urine Blood Negative Urine Nitrite Negative Urine Bilirubin Negative Urine Urobilinogen (Auto) Negative Ur Leukocyte Esterase Negative Urine RBC < 1 Urine WBC < 1 Ur Squamous Epith Cells < 1 Urine Bacteria None Blood Type O Positive Antibody Screen NEGATIVE Crossmatch See Detail Blood Bank Wristband ID Yes 12/09/24 12/10/24 12:08 05:15 WBC 3.6 L RBC 4.43 L Hgb 9.8 L D 9.8 L Hct 32.3 L 32.5 L MCV 73 L MCH 22.1 L MCHC 30.2 L RDW Std Deviation 55.0 H Plt Count 252 D Neut % (Auto) 28 L Lymph % (Auto) 59 H [place] % (Auto) 11 Eos % (Auto) 1 Baso % (Auto) 1 Neut # (Auto) 1.0 L Lymph # (Auto) 2.1 [place] # (Auto) 0.4 Eos # (Auto) 0.0 Baso # (Auto) 0.0 Immature Gran # (Auto) 0.01 H Absolute Nucleated RBC 0.02 H Immature Gran % 0 Nucleated RBC % 1 H Sodium 141 Potassium 4.0 Chloride 105 Carbon Dioxide 28.1 Anion Gap 8 BUN 13 Creatinine 1.0 Estim Creat Clear Calc 91.6 eGFR > 60 BUN/Creatinine Ratio 13 Glucose 97 Calculated Osmolality 281 Calcium 8.7 Corrected Calcium 8.7 Phosphorus 4.0 Magnesium 2.2 Ferritin Total Bilirubin 0.6 AST 29 ALT 20 Alkaline Phosphatase 91 Total Protein 7.3 Albumin 4.1 Globulin 3.2 Albumin/Globulin Ratio 1.3 Ur Collection Type Urine Color Urine Clarity Urine pH Ur Specific [place] Urine Protein Urine Glucose (UA) Urine Ketones Urine Blood Urine Nitrite Urine Bilirubin Urine Urobilinogen (Auto) Ur Leukocyte Esterase Urine RBC Urine WBC Ur Squamous Epith Cells Urine Bacteria Blood Type Antibody Screen Crossmatch Blood Bank Wristband ID Quality Measures Quality Measures VTE prophylaxis Assessment & Plan Assessment Current Active Medications: Generic Name Dose Route Start Last Admin Trade Name Freq PRN Reason Stop Dose Admin Acetaminophen 1,000 mg 12/09/24 08:23 Acetaminophen 325 Mg Tablet PO 01/07/25 21:59 Q6H PRN PAIN SCALE 1-3 (mild Iron Sucrose 200 mg 12/09/24 09:00 12/09/24 09:56 Iron Sucrose Cplx Inj 20 Mg/Ml Vial 5 Ml IVP 01/08/25 08:59 200 mg DAILY CARLEE Administration Levothyroxine Sodium 50 mcg 12/10/24 06:00 12/10/24 05:11 Levothyroxine Sodium 25 Mcg Tablet PO 01/09/25 05:59 50 mcg ACBR CARLEE Administration Ondansetron HCl 4 mg 12/08/24 22:00 Ondansetron Inj 2 Mg/Ml Inj 2 Ml IV 01/07/25 21:59 Q6H PRN NAUSEA OR VOMITING Protocol Pantoprazole Sodium 40 mg 12/09/24 09:00 12/09/24 20:34 Pantoprazole Inj 40 Mg Vial IVP 01/08/25 08:59 40 mg BID CARLEE Administration Plan 39-year-old male with past medical history of Down syndrome, presenting with 6 months of blood stool per rectum. Admitted for blood loss anemia in settings of lower GI bleed. #Lower GI bleed. Admission Hgb 7.2, MCV 69. Likely internal hemorrhoid versus diverticular bleed. Reports recurrent bright blood per rectum along with rectal pain with defecation, since July 2024. Often has large amount of stool, often staining the toilet. [facility] care has been trending hemoglobin, recently started iron supplements which she is taking. No active bleeding or hemorrhoid noted on rectal exam. FOBT negative on admission Gastroenterology was consulted, EGD showed gastritis with not evident source for bleeding ? Pending colonoscopy ? GoLytely ? Follow-up transfusion H&H ? Transfuse if Hgb <7 ? Continue PROTONIX ? Follow-up iron panel #Acute microcytic anemia #Iron deficiency anemia Most likely secondary to longstanding blood loss in the setting of lower GI bleed possibly secondary to internal hemorrhoids vs diverticulosis Hemoglobin 7.2 uptrending to 9.8 after 2 units of PRBC Iron 18 TIBC 401 iron sat 4% ferritin 3 ? Follow-up H&H ? Transfuse if hemoglobin less than 7 #Hypothyroidism. #Sinus bradycardia. Normotensive, HR in 60s on admission, but noted in 50s on telemetry during encounter. EKG shows sinus bradycardia with HR 49. Per sister at bedside, he was diagnosed with sinus bradycardia several months ago. No intervention has been done since. He is asymptomatic other than above mentioned dizziness and shaking which most likely related to anemia. Labs showed TSH 6.93, free T4 1.02. ? Continue to monitor. ? Consider outpatient cardiology follow-up. - started on levothyroxine 50 mcg daily. #Down syndrome. Mild intellectual disability. Able to communicate, however please refer to family member for questions. Health maintenance: Diet: Clear liquid diet GI prophylaxis: PROTONIX. DVT prophylaxis: SCD. Antibiotics: Not indicated. CODE STATUS: Full code. Disposition: Admitted for acute blood loss anemia. Patient discussed with my attending Dr Ramon Echeverria MD PGY-3 Disclaimer: Despite multiple revisions, due to the dictation software being used, the document bellow may not be free of grammatical errors including phonetic/typographic errors. However, this does not deter from our commitment to providing health care in the patient's best interest in mind. Attending Provider Attestation/Addendum Pending colonoscopy. Patient had upper GI endoscopy. Family at bedside will supervise and [facility] this afternoon. The patient presented with bright red blood per rectum. No weight change. Denies abdominal pain. Plan discussed with housestaff
[2024-12-10] MEDS: IRON SUCROSE CPLX INJ 20 MG/ML VIAL 5 ML 200 MG IVP (09:06)
[2024-12-10] MEDS: PANTOPRAZOLE INJ 40 MG VIAL IVP ×2 (09:06→20:16)
[2024-12-10] MEDS: NA SU/NAHCO3/KC/PEG (Golytely) 4,000 ML BTL 4000 ML PO (16:37)
[2024-12-10 17:31] LABS: Hematocrit 32.9 % (41.0-53.0)
--- NOTE | 2024-12-10 22:25 | ESPR_ITS ---
Documentation for date of: 12/10/24 Subjective Subjective Interval history: Patient evaluated Hemoglobin hematocrit 10.0 and 32.9 after blood transfusion Upper endoscopy showed gastritis and esophagitis Colonoscopy was scheduled for today but patient is not clear additional GoLytely Colonoscopy scheduled for tomorrow Exam Vital Signs Temp Pulse Resp BP Pulse Ox O2 Del Method O2 Flow Rate 98.5 F 67 19 147/69 H 92 L Room Air 2 12/10/24 19:59 12/10/24 19:59 12/10/24 19:59 12/10/24 19:59 12/10/24 19:59 12/10/24 19:59 12/09/24 21:40 Objective Labs 12/10/24 17:10 12/10/24 05:15 Labs: Laboratory Results - last 24 hr 12/10/24 12/10/24 05:15 17:10 WBC 3.6 L RBC 4.43 L Hgb 9.8 L 10.0 L Hct 32.5 L 32.9 L MCV 73 L MCH 22.1 L MCHC 30.2 L RDW Std Deviation 55.0 H Plt Count 252 D Neut % (Auto) 28 L Lymph % (Auto) 59 H [place] % (Auto) 11 Eos % (Auto) 1 Baso % (Auto) 1 Neut # (Auto) 1.0 L Lymph # (Auto) 2.1 [place] # (Auto) 0.4 Eos # (Auto) 0.0 Baso # (Auto) 0.0 Immature Gran # (Auto) 0.01 H Absolute Nucleated RBC 0.02 H Immature Gran % 0 Nucleated RBC % 1 H Sodium 141 Potassium 4.0 Chloride 105 Carbon Dioxide 28.1 Anion Gap 8 BUN 13 Creatinine 1.0 Estim Creat Clear Calc 91.6 eGFR > 60 BUN/Creatinine Ratio 13 Glucose 97 Calculated Osmolality 281 Calcium 8.7 Corrected Calcium 8.7 Phosphorus 4.0 Magnesium 2.2 Total Bilirubin 0.6 AST 29 ALT 20 Alkaline Phosphatase 91 Total Protein 7.3 Albumin 4.1 Globulin 3.2 Albumin/Globulin Ratio 1.3 Impressions Impression: Hematochezia Gastritis Colonoscopy rescheduled for tomorrow and additional GoLytely Assessment & Plan A&P Narrative # Hematochezia # Acute posthemorrhagic anemia requiring blood transfusion Plan Initial test discharge she is fiberoptic upper endoscopy with possible therapeutic intervention possible biopsy under intravenous moderate sedation If negative will have a GoLytely prep and do a colonoscopy prior to discharge Other medical problems include # Down syndrome # Sinus bradycardia # Hypothyroidism thank you very much for the opportunity to participate in care of this patient Time Spent With Patient Time: Total time spent is greater than 50% in coordination of care (as documented) at patient's floor/unit and/or counseling patient:
[2024-12-11] VITALS (18 sets, daily range): BP systolic 81–138; BP diastolic 39–93; PULSE 20–75; RESP 13–22; TEMP 36.1–36.6; O2SAT 95–100
[2024-12-11] MEDS: LEVOTHYROXINE SODIUM 25 MCG TABLET 50 MCG PO (05:13)
[2024-12-11 05:59] LABS: Alanine Aminotransferase 19 U/L (10-49); Albumin/Globulin Ratio 1.3 (1.2-2.2); Alkaline Phosphatase 93 U/L (46-116); Anion Gap 6 (7-16); Aspartate Amino Transferase 25 U/L (0-34); BUN/Creatinine Ratio 7 Ratio (12-20); Bilirubin,Total 0.5 mg/dL (0.3-1.2); Blood Urea Nitrogen 7 mg/dL (9-23); Calcium 8.7 mg/dL (8.3-10.6); Calcium (Corrected) 8.7 mg/dL (8.5-10.1); Carbon Dioxide 27.9 mMol/L (20.0-31.0); Chloride 107 mMol/L (98-107); Estimated Creatinine Clearance 91.6 mL/min (>60); Glucose 91 mg/dL (74-106); Magnesium 2.2 mg/dL (1.6-2.6); Osmolality,Calculated 279 (275-295); Phosphorous 3.7 mg/dL (2.4-5.1); Potassium 3.8 mMol/L (3.4-5.1); Sodium 141 mMol/L (136-145); eGFR > 60 See Note
[2024-12-11 06:00] LABS: Basophils % (Auto) 1 % (0-2.5); Eosinophils # (Auto) 0.1 Thou/mm3 (0.0-0.5); Eosinophils % (Auto) 1 % (0-10); Hematocrit 32.8 % (41.0-53.0); Hemoglobin 9.8 g/dL (13.5-16.0); Immature Granulocytes % (Auto) 0 % (0-0); Immature Granulocytes Auto 0.01 Thou/mm3 (0.00-0.00); Lymphocytes # (Auto) 2.4 Thou/mm3 (1.0-4.8); Lymphocytes % (Auto) 53 % (10-50); Mean Corpuscular HGB Conc 29.9 g/dl (31.0-37.0); Mean Corpuscular Volume 74 fL (80-100); Monocytes # (Auto) 0.5 Thou/mm3 (0.0-0.8); Monocytes % (Auto) 11 % (0-12); Neutrophils # (Auto) 1.6 Thou/mm3 (1.8-7.7); Neutrophils % (Auto) 34 % (37-80); Nucleated Red Blood Cell # 0.02 Thou/mm3 (0.00-0.00); Nucleated Red Blood Cell % 0 /100 WBC (0); Platelet Count 291 Thou/mm3 (140-440); RDW Standard Deviation 55.7 fL (35.1-43.9); Red Blood Count 4.45 Miln/mm3 (4.50-5.90); White Blood Count 4.5 Thou/mm3 (3.8-10.6)
--- NOTE | 2024-12-11 07:24 | ESPR_ITS ---
Documentation for date of: 12/11/24 Subjective Subjective Interval history: No acute overnight events reported. Patient seen and examined at bedside. Patient denies any abdominal pain, however patient's family members did mention patient had continuous bloody diarrhea. Patient is pending colonoscopy today status post completion [facility]. Otherwise, patient's vital signs and labs are stable except for patient's bradycardia. However, patient's family members state that patient has not complained of any chest pain, palpitations, dizziness, or headache. Exam Vital Signs Temp Pulse Resp BP Pulse Ox O2 Del Method O2 Flow Rate 97.7 F 55 L 20 111/78 96 Room Air 2 12/11/24 04:00 12/11/24 04:00 12/11/24 04:00 12/11/24 04:00 12/11/24 04:00 12/11/24 04:00 12/09/24 21:40 Narrative Exam General Appearance: Pt in no acute distress laying comfortably in bed. HEENT: NC/AT, no scleral icterus, no conjunctival pallor, MMM Lungs: CTAB, no wheezes or crackles appreciated CVS: Bradycardic, regular rhythm, S1/S2 heard, no murmurs or rubs appreciated ABD: Soft, non-tender, non-distended, BS + in all 4 quadrants EXT: no deformity/edema/lesions/cyanosis/clubbing, radial pulses 2+ BL, DP pulses 2 + BL, able to move all 4 extremities SKIN: Skin exam normal without any rashes. Neuro: Difficult to assess the patient mentation baseline. Psych: Difficult to assess due to patient mentation baseline Objective Labs 12/11/24 04:46 12/11/24 04:46 Labs: Laboratory Results - last 24 hr 12/10/24 12/11/24 17:10 04:46 WBC 4.5 RBC 4.45 L Hgb 10.0 L 9.8 L Hct 32.9 L 32.8 L MCV 74 L MCH 22.0 L MCHC 29.9 L RDW Std Deviation 55.7 H Plt Count 291 D Neut % (Auto) 34 L Lymph % (Auto) 53 H [place] % (Auto) 11 Eos % (Auto) 1 Baso % (Auto) 1 Neut # (Auto) 1.6 L Lymph # (Auto) 2.4 [place] # (Auto) 0.5 Eos # (Auto) 0.1 Baso # (Auto) 0.0 Immature Gran # (Auto) 0.01 H Absolute Nucleated RBC 0.02 H Immature Gran % 0 Nucleated RBC % 0 Sodium 141 Potassium 3.8 Chloride 107 Carbon Dioxide 27.9 Anion Gap 6 L BUN 7 L Creatinine 1.0 Estim Creat Clear Calc 91.6 eGFR > 60 BUN/Creatinine Ratio 7 L Glucose 91 Calculated Osmolality 279 Calcium 8.7 Corrected Calcium 8.7 Phosphorus 3.7 Magnesium 2.2 Total Bilirubin 0.5 AST 25 ALT 19 Alkaline Phosphatase 93 Total Protein 7.0 Albumin 4.0 Globulin 3.0 Albumin/Globulin Ratio 1.3 Quality Measures Quality Measures VTE prophylaxis Assessment & Plan Assessment Current Active Medications: Generic Name Dose Route Start Last Admin Trade Name Freq PRN Reason Stop Dose Admin Acetaminophen 1,000 mg 12/09/24 08:23 Acetaminophen 325 Mg Tablet PO 01/07/25 21:59 Q6H PRN PAIN SCALE 1-3 (mild Iron Sucrose 200 mg 12/09/24 09:00 12/10/24 09:06 Iron Sucrose Cplx Inj 20 Mg/Ml Vial 5 Ml IVP 01/08/25 08:59 200 mg DAILY CARLEE Administration Levothyroxine Sodium 50 mcg 12/10/24 06:00 12/11/24 05:13 Levothyroxine Sodium 25 Mcg Tablet PO 01/09/25 05:59 50 mcg ACBR CARLEE Administration Ondansetron HCl 4 mg 12/08/24 22:00 Ondansetron Inj 2 Mg/Ml Inj 2 Ml IV 01/07/25 21:59 Q6H PRN NAUSEA OR VOMITING Protocol Pantoprazole Sodium 40 mg 12/09/24 09:00 12/10/24 20:16 Pantoprazole Inj 40 Mg Vial IVP 01/08/25 08:59 40 mg BID CARLEE Administration Plan Patient is a 39-year-old male with past medical history of Down syndrome, presenting with 6 months of blood stool per rectum. Admitted for blood loss anemia in settings of lower GI bleed. #Lower GI bleed. Admission Hgb 7.2, MCV 69. Likely internal hemorrhoid versus diverticular bleed. Reports recurrent bright blood per rectum along with rectal pain with defecation, since July 2024. Often has large amount of stool, often staining the toilet. Family health care has been trending hemoglobin, recently started iron supplements which she is taking. No active bleeding or hemorrhoid noted on rectal exam. FOBT negative on admission Gastroenterology was consulted, EGD showed gastritis with not evident source for bleeding Total iron deficit is 975mg ? Pending colonoscopy today ? Transfuse if Hgb <7 ? Continue PROTONIX ? Continue with 2 more doses of IV Iron 200mg, and can transition to oral iron supplementation at discharge #Acute microcytic anemia #Iron deficiency anemia Most likely secondary to longstanding blood loss in the setting of lower GI bleed possibly secondary to internal hemorrhoids vs diverticulosis Hemoglobin 7.2 uptrending to 9.8 after 2 units of PRBC Iron 18 TIBC 401 iron sat 4% ferritin 3 ? Follow-up H&H ? Transfuse if hemoglobin less than 7 #Hypothyroidism. #Sinus bradycardia. Normotensive, HR in 60s on admission, but noted in 50s on telemetry during encounter. EKG shows sinus bradycardia with HR 49. Per sister at bedside, he was diagnosed with sinus bradycardia several months ago. No intervention has been done since. He is asymptomatic other than above mentioned dizziness and shaking which most likely related to anemia. Labs showed TSH 6.93, free T4 1.02. ? Continue to monitor. ? Consider outpatient cardiology follow-up. - started on levothyroxine 50 mcg daily. #Down syndrome. Mild intellectual disability. Able to communicate, however please refer to family member for questions. Health maintenance: Diet: Clear liquid diet GI prophylaxis: PROTONIX. DVT prophylaxis: SCD. Antibiotics: Not indicated. CODE STATUS: Full code. Disposition: Admitted for acute blood loss anemia. Patient discussed with my attending Dr Ramon Andres MD PGY-2 Disclaimer: Despite multiple revisions, due to the dictation software being used, the document bellow may not be free of grammatical errors including phonetic/typographic errors. However, this does not deter from our commitment to providing health care in the patient's best interest in mind. Attending Provider Attestation/Addendum Patient had colonoscopy today patient he has hemorrhoids. He is status post banding. He has mild diverticulosis as well. I discussed with and supervised the resident physician who took care of this patient. I agree with the assessment and plan as above.
[2024-12-11] MEDS: IRON SUCROSE CPLX INJ 20 MG/ML VIAL 5 ML 200 MG IVP (08:49)
[2024-12-11] MEDS: PANTOPRAZOLE INJ 40 MG VIAL IVP ×2 (08:50→20:29)
--- NOTE | 2024-12-11 10:02 | CHAP ---
Patient was visited by the Spiritual Care Volunteer who prayed for them. (Volunteer was in the hospital from 09:11-10:02).
--- NOTE | 2024-12-11 12:22 | PC.NURSE ---
pt to endo via david
[2024-12-11] MEDS: SODIUM CHLORIDE 0.9% 500 ML 500 ML 20 ML IV (13:07)
--- NOTE | 2024-12-11 13:54 | PC.NURSE ---
Pt back to room from endo, safe comfortable position, family at bedside
--- NOTE | 2024-12-11 14:07 | SUR.PHASEI ---
1335 Pt anxious, states he has to go to the bathroom., via court interpreter.Abd round and firm, BS x 4. Pt encour to pass flatus and repositioned for gas release. 1345 Pt remains anxious, placed on bedpan. Pt's father at bedside, reassurance offered. Report given to Meenakshi OLVERA assuming care. 1355 Pt transferred back to room 355. Assisted to BR. Pt releasing flatus and states feeling better. Meenakshi OLVEAR and parents remain with pt. Condition stable.
--- NOTE | 2024-12-11 16:25 | PC.SS ---
Rounding: Pending Colonoscopy
[2024-12-11] MEDS: ACETAMINOPHEN 325 MG TABLET 1000 MG PO (19:13)
[2024-12-12] VITALS: BP 120/63; PULSE 52; PULSE 62; RESP 17; TEMP 36.4; O2SAT 98
[2024-12-12 04:00] VITALS: BP 154/88; PULSE 55; PULSE 65; RESP 18; TEMP 37.2; O2SAT 99
[2024-12-12 05:00] LABS: Basophils % (Auto) 0 % (0-2.5); Eosinophils % (Auto) 0 % (0-10); Hematocrit 32.3 % (41.0-53.0); Hemoglobin 9.6 g/dL (13.5-16.0); Immature Granulocytes % (Auto) 0 % (0-0); Immature Granulocytes Auto 0.03 Thou/mm3 (0.00-0.00); Lymphocytes # (Auto) 2.4 Thou/mm3 (1.0-4.8); Lymphocytes % (Auto) 25 % (10-50); Mean Corpuscular HGB Conc 29.7 g/dl (31.0-37.0); Mean Corpuscular Hemoglobin 22.2 pg (25.0-35.0); Mean Corpuscular Volume 75 fL (80-100); Monocytes # (Auto) 0.8 Thou/mm3 (0.0-0.8); Monocytes % (Auto) 9 % (0-12); Neutrophils # (Auto) 6.1 Thou/mm3 (1.8-7.7); Neutrophils % (Auto) 65 % (37-80); Nucleated Red Blood Cell # 0.03 Thou/mm3 (0.00-0.00); Nucleated Red Blood Cell % 0 /100 WBC (0); Platelet Count 303 Thou/mm3 (140-440); RDW Standard Deviation 55.7 fL (35.1-43.9); Red Blood Count 4.33 Miln/mm3 (4.50-5.90); White Blood Count 9.4 Thou/mm3 (3.8-10.6)
[2024-12-12] MEDS: LEVOTHYROXINE SODIUM 25 MCG TABLET 50 MCG PO (05:24)
[2024-12-12 05:27] LABS: Alanine Aminotransferase 20 U/L (10-49); Albumin, Serum 4.1 gm/dL (3.5-5.0); Albumin/Globulin Ratio 1.3 (1.2-2.2); Alkaline Phosphatase 99 U/L (46-116); Anion Gap 10 (7-16); Aspartate Amino Transferase 24 U/L (0-34); BUN/Creatinine Ratio 13 Ratio (12-20); Bilirubin,Total 0.4 mg/dL (0.3-1.2); Blood Urea Nitrogen 13 mg/dL (9-23); Calcium 9.1 mg/dL (8.3-10.6); Calcium (Corrected) 9.1 mg/dL (8.5-10.1); Carbon Dioxide 26.2 mMol/L (20.0-31.0); Chloride 107 mMol/L (98-107); Estimated Creatinine Clearance 91.6 mL/min (>60); Globulin 3.2 gm/dL (2.3-3.5); Glucose 114 mg/dL (74-106); Osmolality,Calculated 286 (275-295); Phosphorous 4.6 mg/dL (2.4-5.1); Sodium 143 mMol/L (136-145); Total Protein 7.3 gm/dL (5.7-8.2); eGFR > 60 See Note
[2024-12-12 07:40] VITALS: BP 130/79; PULSE 59; RESP 14; TEMP 36.3; O2SAT 99
[2024-12-12 08:00] VITALS: PULSE 80
[2024-12-12] MEDS: IRON SUCROSE CPLX INJ 20 MG/ML VIAL 5 ML 200 MG IVP (08:19)
[2024-12-12] MEDS: PANTOPRAZOLE INJ 40 MG VIAL IVP (08:20)
--- NOTE | 2024-12-12 14:54 | ESDS_ITS ---
<Statement entered by Walter Brunson MD - 12/17/24 21:51> I reviewed above note and agree with findings and plans. I have also personally examined the patient with medicine team and went over assessment and plan with medical team including legal summer intern and resident physician. Planned Discharge Date 12/12/24 DS: Providers Provider Date of admission: 12/08/24 22:00 Primary care physician: Carlos Dean MD Admitting Provider: Sung Vela MD Attending Provider on Admission: Nicolas Tejada DO Consults: 12/08/24 21:59 Consult to Gastroenterology Stat Comment: GI bleed, likely internal hemorrhage, Hgb 7 Consulting Provider: Nils Sebastian Instructions: ED gave 2 RBCs Attending Provider on DC: Walter Brunson MD Discharging Provider: Richard Patel MD DS: Diagnosis Problem List Completed Was Problem List Reviewed/Reconciled?: Yes Hospital Course Hospital Course Hospital course: 39-year-old male with Hx of Down syndrome, presented with acute on chronic bright red blood per rectum. He's had recurrent bright blood in his stool since July 2024. He also had bright red when wiping which is continuous. Reported mild rectal pain with defecation that is also chronic. He followed up with family healthcare for this and was recently found to be anemic, although level unknown. Recently, he was started on iron supplements for iron deficiency anemia. On last PCP visit 2 days prior to admission, he was found to have low hemoglobin and had reported large amount of bright red blood in the toilet, for which he was referred for ED admission. He reported dizziness, lightheadedness when getting up from a seated position which is also chronic. He was recently diagnosed with bradycardia, asymptomatic. No interventions were done since. Denied fever, chills, chest pain, shortness of breath, palpitations, abdominal pain, nausea, vomiting, diarrhea, constipation, hemoptysis or hematemesis or hematuria, dysuria, urinary frequency or urgency. No reported abnormal weight changes or night sweats. Patient received EGD and colonoscopy while inpatient which revealed only hemorrhoids, diverticulosis without bleed. Per GI recommendations, patient counseled about high-fiber diet and cleared for discharge from GI perspective. Patient was found to have elevated TSH, was started on low-dose levothyroxine to be followed up outpatient. Patient medically cleared and stable for discharge. Discharge plan: Por favor, tome ramo medicamentos en casa seg?n lo prescrito. Por favor, tome ramo nuevos medicamentos: Levotiroxina 50 mcg por un mes diariamente, Sulfato ferroso 325 mg nataliya vez al d?a y Metamucil diariamente. Por favor, incorpore nataliya dieta payam en fibra. Cierra nataliya siddharth con hua m?dico de cabecera o endocrin?logo dentro de 1-2 semanas y repita ramo an?lisis de TSH y fT4 en 6 semanas. Si no tiene un m?dico de cabecera, no dude en programar nataliya siddharth en el [facility]?ladonna de [place], al [phone]. Please take your home medications as prescribed. Please take your new medications: Levothyroxine 50mcg for a month daily, Ferrous Sulfate 325mg once daily, and Metamucil daily Please incorporate a high fiber diet. Follow up with your primary care provider or gunner mate within 1-2 weeks, and repeat your TSH and fT4 labs in 6 weeks If you do not have a primary care provider, please feel free to make an appointment at the [facility], at [phone] Diagnoses: #Lower GI bleed. #Acute microcytic anemia #Iron deficiency anemia #Hypothyroidism. #Sinus bradycardia. #Down syndrome. Plan of care discussed with attending Dr. Brunson. Richard Patel MD PGY?1 Time Spent with Patient Time attestation: Total time spent providing and/or coordinating discharge services: Exam Vital Signs Temp Pulse Resp BP Pulse Ox O2 Del Method O2 Flow Rate 97.4 F 80 14 130/79 99 Room Air 3 12/12/24 07:40 12/12/24 08:00 12/12/24 07:40 12/12/24 07:40 12/12/24 07:40 12/12/24 07:40 12/11/24 13:22 Narrative Exam General Appearance: Pt in no acute distress laying comfortably in bed. HEENT: NC/AT, no scleral icterus, no conjunctival pallor, MMM Lungs: CTAB, no wheezes or crackles appreciated CVS: Bradycardic, regular rhythm, S1/S2 heard, no murmurs or rubs appreciated ABD: Soft, non-tender, non-distended, BS + in all 4 quadrants EXT: no deformity/edema/lesions/cyanosis/clubbing, radial pulses 2+ BL, DP pulses 2 + BL, able to move all 4 extremities SKIN: Skin exam normal without any rashes. Neuro: Difficult to assess the patient mentation baseline. Psych: Difficult to assess due to patient mentation baseline Discharge Plan Plan Patient Disposition: HOME (Self Care) Patient condition on transfer: Stable Care Plan Goals: Por favor, tome ramo medicamentos en casa seg?n lo prescrito. Por favor, tome ramo nuevos medicamentos: Levotiroxina 50 mcg por un mes diariamente, Sulfato ferroso 325 mg nataliya vez al d?a y Metamucil diariamente. Por favor, incorpore nataliya dieta payam en fibra. Cierra nataliya siddharth con hua m?dico de cabecera o endocrin?logo dentro de 1-2 semanas y repita ramo an?lisis de TSH y fT4 en 6 semanas. Si no tiene un m?dico de cabecera, no dude en programar nataliya siddharth en [facility] de [place], al [phone]. Please take your home medications as prescribed. Please take your new medications: Levothyroxine 50mcg for a month daily, Ferrous Sulfate 325mg once daily, and Metamucil daily Please incorporate a high fiber diet. Follow up with your primary care provider or gunner mate within 1-2 weeks, and repeat your TSH and fT4 labs in 6 weeks If you do not have a primary care provider, please feel free to make an appointment at the [facility], at [phone] Prescriptions/Referrals Prescriptions/Med Rec: New levothyroxine 50 mcg capsule 50 mcg PO ACBR 30 Days Qty: 30 0RF psyllium husk [Metamucil] 0.4 gram capsule 0.4 g PO QDAY Qty: 30 0RF Continued ferrous sulfate [FeroSul] 325 mg (65 mg iron) tablet 325 mg PO .joshua;y Patient Comments: TAKE ONE TABLET BY MOUTH EVERY DAY WITH ORANGE JUICE Referrals: Carlos Dean MD [Primary Care Provider] - Patient/Caregiver Discharge Instructions Discharge Activity: resume usual activities Other Discharge Activity Instructions:: Please take your home medications as prescribed. Please take your new medications: Levothyroxine 50mcg for a month daily, Ferrous Sulfate 325mg once daily, and Metamucil daily Please incorporate a high fiber diet. Follow up with your PCP or gunner mate within 1-2 weeks, and repeat your TSH and fT4 labs in 6 weeks If you do not have a PCP, please feel free to make an appointment at the [facility], at [phone] Education Materials: Colonoscopy, Upper GI Endoscopy, Treating Hemorrhoids: Self-Care, Understanding Rectal Bleeding, Eating a High-Fiber Diet, Understanding Hemorrhoids Print Language: Turkmen Stand Alone Forms: Kenzie Award Info., Patient Portal Info Letter Discharge Order Discharge Orders: Discharge (Routine); Ordered 12/12/24 Ordered By: Walter Brunson Quality Discharge Quality Measures VTE prophylaxis
== END 2024-12-12 10:42 | disposition home or self-care (01) | DRG 226 ==
LOC: SERX 22:37 → SERHOLD 22:53 → S3NX 12-09 02:05
PROVIDERS: Nurse Practitioner Family; Specialist; Student in an Organized Health Care Education/Training Program; Admitting Provider Student in an Organized Health Care Education/Training Program; Emergency Provider Emergency Medicine; PCP Family Medicine; Visit Provider Student in an Organized Health Care Education/Training Program
PROC: 0DJ08ZZ Inspection of Upper Intestinal Tract, Via Natural or Artificial Opening Endoscopic (ICD-10-PCS; CPT 43239; principal; 2024-12-09 20:15)
PROC: 0DJD8ZZ Inspection of Lower Intestinal Tract, Via Natural or Artificial Opening Endoscopic (ICD-10-PCS; CPT 45378; principal; 2024-12-11 12:45)
DX: K29.71 Gastritis, unspecified, with bleeding (principal); K57.31 Diverticulosis of large intestine without perforation or abscess with bleeding; K64.1 Second degree hemorrhoids; R00.1 Bradycardia, unspecified; F70 Mild intellectual disabilities; E03.9 Hypothyroidism, unspecified; D62 Acute posthemorrhagic anemia; Q90.9 Down syndrome, unspecified; R42 Dizziness and giddiness; Z79.890 Hormone replacement therapy
CPT/HCPCS: 36415; 74177; 80053; 81001; 82728; 83540; 83550; 83735; 83880; 84100; 84439; 84443; 84484; 85014; 85018; 85025; 85610; 85730; 86850; 86900; 86901; 86923; 93005; 93225; 93306; 99285; A4649; J1200; J1756; J2250; J2470; J3010; J7040; J7050; P9016; Q9967; A9270